=== PATIENT | female | born 1975 | race Two or more races ===

== ENCOUNTER 2022-02-09 12:33 | Emergency (ER) | payer SELFPAY ==
[~2022-02-09] VITALS: Ht 167.6 cm; Wt 91.8 kg
[~2022-02-09 12:33] MED LIST: RANI-287 PO
[2022-02-09 12:59] VITALS: BP 131/89
--- NOTE | 2022-02-09 13:10 | NUR ---
REFERRED FROM URGENT CARE FOR LEFT LEG WEAKNESS & NUMBNESS. C/O 04/26 LEFT HIP/LEFT LEG PAIN/NUMBNESS X 1 WEEK. PMH: FALL 2 MONTHS AGO
[2022-02-09] MEDS ORDERED: IBUPROFEN 400 MG TAB PO ONE (13:30)
[2022-02-09] MEDS ORDERED: NAPR-1704 PO (14:22)
[2022-02-09 14:43] VITALS: BP 147/79
== END 2022-02-09 14:43 | disposition home or self-care (01) ==
LOC: MED 12:33
DX: M54.32 Sciatica, left side (principal)
CPT/HCPCS: 73502; 81025; 99283